=== PATIENT | male | born 1980 | race Two or more races ===

== ENCOUNTER 2020-05-17 12:37 | Outpatient (REF) | payer OTHER, SELFPAY ==
[2020-05-18 11:25] LABS: SARS COV2 PCR INHOUSE NEGATIVE (Negative)
== END 2020-05-17 12:38 | disposition home or self-care (01) ==
LOC: HO.LAB 12:37
PROVIDERS: Visit Provider Internal Medicine
DX: Z20.822 Contact with and (suspected) exposure to COVID-19 (principal)
CPT/HCPCS: C9803; U0003

== ENCOUNTER 2020-05-21 09:41 | Outpatient (REF) | payer OTHER, SELFPAY ==
[2020-05-21 12:59] LABS: SARS COV2 PCR INHOUSE NEGATIVE (Negative)
== END 2020-05-21 09:42 | disposition home or self-care (01) ==
LOC: HO.LAB 09:41
PROVIDERS: Visit Provider Internal Medicine
DX: Z20.822 Contact with and (suspected) exposure to COVID-19 (principal)
CPT/HCPCS: C9803; U0003